=== PATIENT | male | born 1985 | race Caucasian/White ===

== ENCOUNTER 2016-07-21 23:52 | Emergency (ER) | payer MEDICAID ==
[~2016-07-21] VITALS: Ht 180.3 cm; Wt 96.2 kg
[~2016-07-21 23:52] MED LIST: ERGO500047
--- NOTE | 2016-07-22 00:55 | NUR ---
DR PRUITT INTO EVAL PATIENT
[2016-07-22] MEDS ORDERED: TETRACAINE HCL 0.5% OPHT DROP 2 ML BOTTLE OP ONE (01:15)
[2016-07-22] MEDS ORDERED: FLUORESCEIN SODIUM 1 MG STRIP OP ONE (01:15)
[2016-07-22] MEDS ORDERED: FLUORESCEIN SODIUM 1 MG STRIP ONE (01:20)
[2016-07-22] MEDS ORDERED: TETRACAINE HCL 0.5% OPHT DROP 2 ML BOTTLE ONE (01:20)
--- NOTE | 2016-07-22 01:34 | NUR ---
Patient discharged to home in stable conditon WITH TAKING PATIENT HOME. Written and verbal after care instructions given. Patient verbalizes understanding of instructions. WALKED OUT OF ER WITH STEADY GAIT. NO DISTRESS NOTED
[2016-07-22 01:35] VITALS: BP 128/77
== END 2016-07-22 01:35 | disposition home or self-care (01) ==
LOC: ER 23:53
DX: H11.31 Conjunctival hemorrhage, right eye (principal); W22.8XXA Striking against or struck by other objects, initial encounter; Y93.89 Activity, other specified; Y99.8 Other external cause status; Y92.89 Other specified places as the place of occurrence of the external cause
CPT/HCPCS: 99283; A4663

== ENCOUNTER 2018-01-14 11:25 | Emergency (ER) | payer MEDICAID ==
[~2018-01-14] VITALS: Ht 180.3 cm; Wt 87.5 kg
--- NOTE | 2018-01-14 11:25 | NUR ---
In room 3, complaining of lower mid back pain, unable to put weight on left leg.
[2018-01-14] MEDS ORDERED: ONDANSETRON 4 MG/2 ML VIAL ONE (11:43)
[2018-01-14] MEDS ORDERED: HYDROMORPHONE 2 MG/1 ML DISP.SYRIN ONE (11:43)
[2018-01-14] MEDS ORDERED: ONDANSETRON 4 MG/2 ML VIAL IM ONE (11:45)
[2018-01-14] MEDS ORDERED: HYDROMORPHONE 1 MG/1 ML DISP.SYRIN IM ONE (11:45)
--- NOTE | 2018-01-14 11:47 | NUR ---
medicated for pain. family at the bedside
--- NOTE | 2018-01-14 12:06 | NUR ---
MSE completed. ACI/Rx x 1 given. Pt wants to wait 10 more minutes.
[2018-01-14 12:08] VITALS: BP 148/87
== END 2018-01-14 12:34 | disposition home or self-care (01) ==
LOC: ER 11:25
DX: M54.42 Lumbago with sciatica, left side (principal)
CPT/HCPCS: 72100; 96372 ×2; 99283; J1170; J2405; A4663

== ENCOUNTER 2019-10-16 17:50 | Emergency (ER) | payer MEDICAID, OTHER ==
[~2019-10-16] VITALS: Ht 180.3 cm; Wt 99.8 kg
--- NOTE | 2019-10-16 17:59 | NUR ---
Pt states he was near bottom of a staircase yesterday, carrying a sofa when they lost control and it struck him in the back. Pt c/o lumbar area pain, can reach 9-10/10 pain, sharp in nature, denies numbnes or tingling. Pt denies CP, SOB, dizziness, n/v, no other complaints, minor to moderate distress noted.
--- NOTE | 2019-10-16 18:17 | NUR ---
Gave pt RX and d/c instructions, pt verbalized understanding.
== END 2019-10-16 18:19 | disposition home or self-care (01) ==
LOC: ER 17:52
DX: M54.5 Low back pain (principal); Z87.01 Personal history of pneumonia (recurrent)
CPT/HCPCS: A4663

== ENCOUNTER 2021-03-31 12:43 | Emergency (ER) | payer BC, OTHER ==
[~2021-03-31] VITALS: Ht 177.8 cm; Wt 90.7 kg
[2021-03-31] MEDS ORDERED: NEOMY/BACITRA/POLYMYXIN B OINT UD PACKET TP ONE ×2 (13:15→13:28)
[2021-03-31] MEDS ORDERED: TDAP DIPH,PERTUSS,TET VAC/PF 0.5 ML DISP.SYRIN IM ONE ×2 (13:15→13:28)
[2021-03-31] MEDS ORDERED: LIDOCAINE HCL 1% 20 ML VIAL TP ONE (13:15)
--- NOTE | 2021-03-31 13:39 | NUR ---
Gave pt d/c instructions, pt verbalized understanding.
== END 2021-03-31 13:41 | disposition home or self-care (01) ==
LOC: ER 12:43
DX: S91.012A Laceration without foreign body, left ankle, initial encounter (principal); W22.8XXA Striking against or struck by other objects, initial encounter; Y93.89 Activity, other specified; Y92.89 Other specified places as the place of occurrence of the external cause; Y99.8 Other external cause status
CPT/HCPCS: 12002; 90471; 90715; 99283; J3490; A4663